=== PATIENT | female | born 1930 | race Caucasian/White ===

== ENCOUNTER 2016-09-14 12:38 | Emergency (ER) | payer MEDICARE, BC ==
[~2016-09-14] VITALS: Ht 152.4 cm; Wt 48.6 kg
[~2016-09-14 12:38] MED LIST: ASPIRIN 32325 MG/TAB PO; CALCIUM WITH D1 CTB PO; CARDIZEM CD 18180 MG PO; CIPRO 250MG TA250 MG PO; COZAAR100 MG PO; DILTIAZEM CD180 MG PO; DILTIAZEM CD300 MG PO; FLONASE0.05 MG/AC NS; HCTZ 25MG25 MG PO; HYZAAR PO; LEVOTHYROXIN0.075 MG PO; LEVOTHYROXIN0.088 MG PO; LEVOTHYROXINE0.1 MG PO; LOSARTAN POTAS100 MG PO; LOSARTAN POTASS1 TA2 PO; LOSARTAN POTASS1 TA3 PO; MEDI-FIRST ASP325 MG PO; MELOXICAM15 MG PO; MIRALAX17 GM PO; MOBIC15 MG PO; OCUVITE1 TA2 PO; RITE AID CALCI600 MG PO; SIMBRINZA 0.2%-18 ML OP; TUCKS1 EACH TP; VIBRAMYCIN100 MG PO; XALATAN EYE DROPS OU; ZYRTEC10 MG PO
[2016-09-14] MEDS ORDERED: TIAZAC PO (12:46)
[2016-09-14] MEDS ORDERED: MICROZIDE12.5 M1 PO (12:47)
[2016-09-14 14:18] VITALS: BP 165/81
== END 2016-09-14 14:15 | disposition home or self-care (01) ==
LOC: ED 12:38
DX: M54.2 Cervicalgia (principal); R42 Dizziness and giddiness; I10 Essential (primary) hypertension; W19.XXXA Unspecified fall, initial encounter

== ENCOUNTER → 2016-09-21 | Outpatient (CLI) | payer MEDICARE, BC ==
[2016-09-14 14:18] VITALS: BP 165/81
[~2016-09-21] MED LIST changes: +MICROZIDE12.5 M1 PO; +TIAZAC PO
== END ==
LOC: MAMMO 14:49
DX: Z12.31 Encounter for screening mammogram for malignant neoplasm of breast (principal)
CPT/HCPCS: G0202

== ENCOUNTER 2017-03-13 19:41 | Observation (INO) | payer MEDICARE, BC ==
[~2017-03-13] VITALS: Ht 152.4 cm; Wt 50.4 kg
[2017-03-13] MEDS ORDERED: SIMBRINZA 0.2%-18 ML OP (19:58)
[2017-03-13 20:35] LABS: HEMATOCRIT 36.1 % (37.0-47.0); MEAN CELL VOLUME 80 fl (78-100); MEAN CORPUSCULAR HEMOGLOBIN 27 pg (27-31); MEAN CORPUSCULAR HGB CONC 33 g/dL (33-37); MEAN PLATELET VOLUME 10.4 fl (7.4-10.4); PLATELET COUNT 334 K/mm3 (130-400); RED BLOOD COUNT 4.49 M/mm3 (4.10-5.30); RED CELL DISTRIBUTION WIDTH 15.7 % (11.5-14.5); WHITE BLOOD COUNT 18.3 K/mm3 (4.8-10.8)
[2017-03-13 20:49] LABS: LYMPHOCYTE 8 % (20-51); MONOCYTE 4 % (3-10); NEUTROPHILS 87 % (42-75)
[2017-03-13 20:50] LABS: ALBUMIN 3.7 g/dL (3.5-5.0); BUN/CREATININE RATIO 13.4 (6.0-26.0); CALCIUM 9.7 mg/dL (8.4-10.2); POTASSIUM 3.9 mmol/L (3.6-5.0); TOTAL BILIRUBIN 0.2 mg/dL (0.2-1.3); TOTAL PROTEIN 6.9 g/dL (6.3-8.2)
[2017-03-13 22:19] LABS: URINE COLOR YELLOW
[2017-03-13 22:20] LABS: URINE APPEARANCE CLEAR; URINE BILIRUBIN NEGATIVE (NEGATIVE); URINE BLOOD NEGATIVE (NEGATIVE); URINE GLUCOSE NEGATIVE (NEGATIVE); URINE KETONE NEGATIVE (NEGATIVE); URINE LEUKOCYTE ESTERASE 1+ (NEGATIVE); URINE NITRATE NEGATIVE (NEGATIVE); URINE PROTEIN(semi-quant) 1+ mg/dL (NEGATIVE); URINE UROBILINOGEN NORMAL (NORMAL); URINE WBC 16-30 /hpf (0-3)
[2017-03-13 23:23] VITALS: BP 193/85
[2017-03-13 23:25] VITALS: BP 193/85
[2017-03-14 02:49] VITALS: BP 144/65
[2017-03-14 06:41] VITALS: BP 150/69
[2017-03-14 06:59] LABS: HEMATOCRIT 34.6 % (37.0-47.0); HEMOGLOBIN 11.4 g/dL (12.5-16.0); MEAN CELL VOLUME 81 fl (78-100); MEAN CORPUSCULAR HEMOGLOBIN 27 pg (27-31); MEAN CORPUSCULAR HGB CONC 33 g/dL (33-37); MEAN PLATELET VOLUME 10.8 fl (7.4-10.4); PLATELET COUNT 304 K/mm3 (130-400); RED BLOOD COUNT 4.27 M/mm3 (4.10-5.30); RED CELL DISTRIBUTION WIDTH 15.4 % (11.5-14.5)
[2017-03-14 07:01] LABS: WHITE BLOOD COUNT 40.7 K/mm3 (4.8-10.8)
[2017-03-14 07:10] LABS: ALBUMIN 3.2 g/dL (3.5-5.0); BUN/CREATININE RATIO 14.9 (6.0-26.0); CALCIUM 8.8 mg/dL (8.4-10.2); POTASSIUM 3.7 mmol/L (3.6-5.0); TOTAL BILIRUBIN 0.6 mg/dL (0.2-1.3); TOTAL PROTEIN 6.1 g/dL (6.3-8.2)
[2017-03-14 07:54] LABS: BAND 20 % (0-10); LYMPHOCYTE 3 % (20-51); MONOCYTE 4 % (3-10); NEUTROPHILS 73 % (42-75); TARGET CELLS 1+
[2017-03-14 10:27] VITALS: BP 158/61
== END 2017-03-14 11:17 | disposition short-term general hospital (02) ==
LOC: ED 19:41 → MED/SURG 21:48
PROVIDERS: ADMIT Nurse Practitioner Primary Care
DX: K56.609 Unspecified intestinal obstruction, unspecified as to partial versus complete obstruction (principal); D72.829 Elevated white blood cell count, unspecified; A09 Infectious gastroenteritis and colitis, unspecified; N30.00 Acute cystitis without hematuria; Z85.820 Personal history of malignant melanoma of skin; Z90.49 Acquired absence of other specified parts of digestive tract; Z98.0 Intestinal bypass and anastomosis status; Z90.710 Acquired absence of both cervix and uterus; Z95.0 Presence of cardiac pacemaker; Z87.11 Personal history of peptic ulcer disease; Z88.0 Allergy status to penicillin; Z88.8 Allergy status to other drugs, medicaments and biological substances
CPT/HCPCS: G0378; J0744; J3010; J3490; J7030; Q9967

== ENCOUNTER 2017-06-12 16:49 | Observation (INO) | payer MEDICARE, BC ==
[~2017-06-12] VITALS: Ht 152.4 cm; Wt 41.3 kg
[2017-06-12] MEDS ORDERED: CARTIA XT240 MG PO (16:57)
[2017-06-12 17:40] LABS: HEMATOCRIT 27.1 % (37.0-47.0); HEMOGLOBIN 9.2 g/dL (12.5-16.0); MEAN CELL VOLUME 75 fl (78-100); MEAN CORPUSCULAR HEMOGLOBIN 25 pg (27-31); MEAN CORPUSCULAR HGB CONC 34 g/dL (33-37); MEAN PLATELET VOLUME 9.7 fl (7.4-10.4); PLATELET COUNT 423 K/mm3 (130-400); RED BLOOD COUNT 3.62 M/mm3 (4.10-5.30); WHITE BLOOD COUNT 14.9 K/mm3 (4.8-10.8)
[2017-06-12 17:46] LABS: RED CELL DISTRIBUTION WIDTH 21.6 % (11.5-14.5)
[2017-06-12 17:53] LABS: ALBUMIN 2.6 g/dL (3.5-5.0); BUN/CREATININE RATIO 11.1 (6.0-26.0); CALCIUM 6.9 mg/dL (8.4-10.2); POTASSIUM 3.9 mmol/L (3.6-5.0); TOTAL BILIRUBIN 0.3 mg/dL (0.2-1.3); TOTAL PROTEIN 5.7 g/dL (6.3-8.2)
[2017-06-12 18:05] LABS: LYMPHOCYTE 9 % (20-51); MONOCYTE 5 % (3-10); NEUTROPHILS 86 % (42-75)
[2017-06-12 18:29] LABS: URINE APPEARANCE HAZY; URINE COLOR YELLOW; URINE PROTEIN(semi-quant) 1+ mg/dL (NEGATIVE)
[2017-06-12 18:30] LABS: URINE BILIRUBIN NEGATIVE (NEGATIVE); URINE BLOOD NEGATIVE (NEGATIVE); URINE GLUCOSE NEGATIVE (NEGATIVE); URINE KETONE 1+ (NEGATIVE); URINE LEUKOCYTE ESTERASE 2+ (NEGATIVE); URINE NITRATE NEGATIVE (NEGATIVE); URINE UROBILINOGEN NORMAL (NORMAL)
[2017-06-12 18:31] LABS: URINE WBC 16-30 /hpf (0-3)
[2017-06-12 19:47] VITALS: BP 127/52
[2017-06-12 19:50] VITALS: BP 127/52
[2017-06-12 23:05] VITALS: BP 134/53
[2017-06-13 03:10] VITALS: BP 137/54
[2017-06-13 06:21] VITALS: BP 152/57
[2017-06-13 10:54] VITALS: BP 147/52
== END 2017-06-13 12:26 | disposition other institution (70) ==
LOC: ED 16:49 → MED/SURG 19:25
PROVIDERS: ADMIT Nurse Practitioner Primary Care
DX: J69.0 Pneumonitis due to inhalation of food and vomit (principal); I10 Essential (primary) hypertension; Z85.038 Personal history of other malignant neoplasm of large intestine; Z85.850 Personal history of malignant neoplasm of thyroid; Z95.0 Presence of cardiac pacemaker; Z79.82 Long term (current) use of aspirin; Z88.0 Allergy status to penicillin; Z88.8 Allergy status to other drugs, medicaments and biological substances
CPT/HCPCS: G0378; J0696; J1650; J3490; J7030; Q9967

== ENCOUNTER 2017-06-13 11:44 | Inpatient (IN) | payer MEDICARE, BC ==
[~2017-06-13] VITALS: Ht 152.4 cm; Wt 45.3 kg
[~2017-06-13 11:44] MED LIST changes: +CARTIA XT240 MG PO
[2017-06-13 12:00] VITALS: BP 147/52
[2017-06-13 12:47] VITALS: BP 147/52
[2017-06-13 13:28] LABS: HEMATOCRIT 28.2 % (37.0-47.0); HEMOGLOBIN 9.5 g/dL (12.5-16.0); MEAN CELL VOLUME 75 fl (78-100); MEAN CORPUSCULAR HEMOGLOBIN 25 pg (27-31); MEAN CORPUSCULAR HGB CONC 34 g/dL (33-37); MEAN PLATELET VOLUME 10.3 fl (7.4-10.4); PLATELET COUNT 492 K/mm3 (130-400); RED BLOOD COUNT 3.75 M/mm3 (4.10-5.30); WHITE BLOOD COUNT 15.3 K/mm3 (4.8-10.8)
[2017-06-13 13:44] LABS: RED CELL DISTRIBUTION WIDTH 21.4 % (11.5-14.5)
[2017-06-13 13:51] LABS: ACANTHROCYTES 1+; LYMPHOCYTE 5 % (20-51); MONOCYTE 5 % (3-10); NEUTROPHILS 90 % (42-75); TARGET CELLS 2+
[2017-06-13 13:55] LABS: ALBUMIN 2.6 g/dL (3.5-5.0); BUN/CREATININE RATIO 10.6 (6.0-26.0); CALCIUM 6.3 mg/dL (8.4-10.2); POTASSIUM 3.8 mmol/L (3.6-5.0); TOTAL BILIRUBIN 0.2 mg/dL (0.2-1.3); TOTAL PROTEIN 5.7 g/dL (6.3-8.2)
[2017-06-13 15:24] VITALS: BP 147/57
[2017-06-13 18:41] VITALS: BP 144/62
[2017-06-13 23:02] VITALS: BP 150/54
[2017-06-14 02:26] VITALS: BP 138/54
[2017-06-14 04:22] LABS: URINE APPEARANCE HAZY; URINE COLOR YELLOW
[2017-06-14 04:23] LABS: URINE BILIRUBIN NEGATIVE (NEGATIVE); URINE BLOOD NEGATIVE (NEGATIVE); URINE GLUCOSE NEGATIVE (NEGATIVE); URINE KETONE 2+ (NEGATIVE); URINE LEUKOCYTE ESTERASE 1+ (NEGATIVE); URINE NITRATE NEGATIVE (NEGATIVE); URINE PROTEIN(semi-quant) 1+ mg/dL (NEGATIVE); URINE UROBILINOGEN NORMAL (NORMAL); URINE WBC 31-50 /hpf (0-3)
[2017-06-14 06:24] VITALS: BP 137/60
[2017-06-14 11:06] VITALS: BP 179/67
[2017-06-14 15:09] VITALS: BP 156/82
[2017-06-14 18:49] VITALS: BP 158/58
[2017-06-14 22:50] VITALS: BP 146/66
[2017-06-15 02:46] VITALS: BP 159/81
[2017-06-15 06:27] VITALS: BP 157/68
[2017-06-15 11:36] VITALS: BP 161/83
[2017-06-15 15:00] VITALS: BP 179/78
[2017-06-15 18:23] VITALS: BP 156/62
[2017-06-15 23:00] VITALS: BP 161/65
[2017-06-16 03:36] VITALS: BP 141/56
[2017-06-16 06:25] VITALS: BP 153/63
[2017-06-16 08:40] LABS: HEMATOCRIT 24.1 % (37.0-47.0); HEMOGLOBIN 8.1 g/dL (12.5-16.0); MEAN CELL VOLUME 74 fl (78-100); MEAN CORPUSCULAR HEMOGLOBIN 25 pg (27-31); MEAN CORPUSCULAR HGB CONC 34 g/dL (33-37); MEAN PLATELET VOLUME 9.6 fl (7.4-10.4); PLATELET COUNT 489 K/mm3 (130-400); RED BLOOD COUNT 3.28 M/mm3 (4.10-5.30); WHITE BLOOD COUNT 10.4 K/mm3 (4.8-10.8)
[2017-06-16 08:49] LABS: RED CELL DISTRIBUTION WIDTH 21.1 % (11.5-14.5)
[2017-06-16 08:55] LABS: ALBUMIN 2.4 g/dL (3.5-5.0); BUN/CREATININE RATIO 5.1 (6.0-26.0); TOTAL BILIRUBIN 0.1 mg/dL (0.2-1.3); TOTAL PROTEIN 5.3 g/dL (6.3-8.2)
[2017-06-16 09:05] LABS: BAND 0 % (0-10); LYMPHOCYTE 5 % (20-51); NEUTROPHILS 93 % (42-75)
[2017-06-16 09:06] LABS: ACANTHROCYTES 1+; MONOCYTE 2 % (3-10); TARGET CELLS 4+
[2017-06-16 09:49] LABS: CALCIUM 5.5 mg/dL (8.4-10.2); POTASSIUM 2.3 mmol/L (3.6-5.0)
[2017-06-16 11:44] VITALS: BP 161/78
[2017-06-16 15:19] VITALS: BP 156/66
[2017-06-16 18:30] VITALS: BP 178/73
[2017-06-16 22:59] LABS: BUN/CREATININE RATIO 5.8 (6.0-26.0)
[2017-06-16 23:00] LABS: POTASSIUM 2.3 mmol/L (3.6-5.0)
[2017-06-16 23:05] VITALS: BP 157/75
[2017-06-17 03:11] VITALS: BP 165/78
[2017-06-17 06:31] VITALS: BP 137/80
[2017-06-17 10:06] LABS: BUN/CREATININE RATIO 5.6 (6.0-26.0)
[2017-06-17 10:30] LABS: TROPONIN-I 0.09 ng/mL (0.00-0.06)
[2017-06-17 10:40] LABS: CALCIUM 5.6 mg/dL (8.4-10.2); POTASSIUM 2.2 mmol/L (3.6-5.0)
[2017-06-17 11:05] VITALS: BP 177/89
[2017-06-17 15:33] VITALS: BP 116/77
[2017-06-17 18:00] VITALS: BP 135/48
[2017-06-17 21:50] LABS: BUN/CREATININE RATIO 5.3 (6.0-26.0)
[2017-06-17 21:51] LABS: CALCIUM 5.6 mg/dL (8.4-10.2); POTASSIUM 2.4 mmol/L (3.6-5.0)
[2017-06-17 23:51] VITALS: BP 155/69
[2017-06-18] VITALS (7 sets, daily range): BP systolic 111–179; BP diastolic 55–87
[2017-06-18 09:40] LABS: HEMOGLOBIN 8.8 g/dL (12.5-16.0); MEAN CELL VOLUME 71 fl (78-100); MEAN CORPUSCULAR HEMOGLOBIN 25 pg (27-31); MEAN CORPUSCULAR HGB CONC 35 g/dL (33-37); MEAN PLATELET VOLUME 9.6 fl (7.4-10.4); PLATELET COUNT 228 K/mm3 (130-400); WHITE BLOOD COUNT 16.6 K/mm3 (4.8-10.8)
[2017-06-18 09:52] LABS: BUN/CREATININE RATIO 4.8 (6.0-26.0)
[2017-06-18 09:59] LABS: CALCIUM 5.8 mg/dL (8.4-10.2); POTASSIUM 2.8 mmol/L (3.6-5.0); RED CELL DISTRIBUTION WIDTH 20.8 % (11.5-14.5)
[2017-06-18 10:21] LABS: BAND 3 % (0-10); LYMPHOCYTE 1 % (20-51); MONOCYTE 3 % (3-10); NEUTROPHILS 93 % (42-75)
[2017-06-18 10:22] LABS: NUCLEATED RED BLOOD CELL 1 (0-6); SCHISTOCYTES 1+; TARGET CELLS 2+
[2017-06-19 03:00] VITALS: BP 142/65
[2017-06-19 06:11] VITALS: BP 137/71
[2017-06-19 07:46] LABS: BUN/CREATININE RATIO 7.2 (6.0-26.0)
[2017-06-19 08:12] LABS: POTASSIUM 2.9 mmol/L (3.6-5.0)
[2017-06-19 08:13] LABS: CALCIUM 5.7 mg/dL (8.4-10.2)
[2017-06-19 11:20] VITALS: BP 130/70
[2017-06-19 15:21] VITALS: BP 129/60
[2017-06-19 18:20] VITALS: BP 135/63
[2017-06-19 23:18] VITALS: BP 141/64
[2017-06-20 02:34] VITALS: BP 157/71
[2017-06-20 05:32] LABS: HEMATOCRIT 26.2 % (37.0-47.0); HEMOGLOBIN 9.2 g/dL (12.5-16.0); MEAN CELL VOLUME 72 fl (78-100); MEAN CORPUSCULAR HEMOGLOBIN 25 pg (27-31); MEAN CORPUSCULAR HGB CONC 35 g/dL (33-37); MEAN PLATELET VOLUME 9.5 fl (7.4-10.4); PLATELET COUNT 448 K/mm3 (130-400); RED BLOOD COUNT 3.62 M/mm3 (4.10-5.30); WHITE BLOOD COUNT 12.1 K/mm3 (4.8-10.8)
[2017-06-20 05:42] LABS: RED CELL DISTRIBUTION WIDTH 21.3 % (11.5-14.5)
[2017-06-20 05:47] LABS: ALBUMIN 2.5 g/dL (3.5-5.0); BUN/CREATININE RATIO 6.5 (6.0-26.0); CALCIUM 6.5 mg/dL (8.4-10.2); POTASSIUM 3.3 mmol/L (3.6-5.0); TOTAL BILIRUBIN 0.3 mg/dL (0.2-1.3); TOTAL PROTEIN 5.3 g/dL (6.3-8.2)
[2017-06-20 05:58] LABS: BAND 1 % (0-10); LYMPHOCYTE 2 % (20-51); MONOCYTE 4 % (3-10); NEUTROPHILS 93 % (42-75)
[2017-06-20 05:59] LABS: HYPOCHROMIA 1+; MICROCYTOSIS 2+; SCHISTOCYTES 1+; TARGET CELLS 2+
[2017-06-20 06:00] LABS: ACANTHROCYTES 1+
[2017-06-20 06:19] VITALS: BP 154/67
== END 2017-06-20 08:39 | disposition short-term general hospital (02) | DRG 178 ==
LOC: MED/SURG 11:44
PROVIDERS: Family Medicine; Nurse Practitioner Primary Care; ADMIT Physician Assistant
DX: J69.0 Pneumonitis due to inhalation of food and vomit (principal); K91.2 Postsurgical malabsorption, not elsewhere classified; E87.2 Acidosis; E46 Unspecified protein-calorie malnutrition; Z85.030 Personal history of malignant carcinoid tumor of large intestine; I10 Essential (primary) hypertension; Z95.0 Presence of cardiac pacemaker; T78.1XXA Other adverse food reactions, not elsewhere classified, initial encounter; R22.9 Localized swelling, mass and lump, unspecified; E87.6 Hypokalemia; E83.42 Hypomagnesemia; E83.51 Hypocalcemia; R56.9 Unspecified convulsions
CPT/HCPCS: J0610; J1200; J1650; J1956; J2930; J3475; J3480; J3490; J7030; J7120; J7512